=== PATIENT | male | born 1995 | race Caucasian/White ===

== ENCOUNTER 2019-01-01 10:54 | Outpatient (CLI) | payer BC | END 2019-01-01 10:55 | disposition home or self-care (01) | LOC: CTENTCT 10:54 | PROVIDERS: ATTEND Otolaryngology Plastic Surgery within the Head & Neck | DX: J01.81 Other acute recurrent sinusitis (principal) | CPT/HCPCS: 70486 ==

== ENCOUNTER 2020-02-21 05:42 | Outpatient (CLI) | payer BC, OTHER ==
[2020-02-22 14:41] LABS: SARS-CoV-2 MS2 Positive; SARS-CoV-2 N Gene Negative; SARS-CoV-2 S Gene Negative; SARS-CoV-2 by NAA Not Detected (NotDetected); SARS-CoV-2 orf1ab Negative
== END 2020-02-21 05:43 | disposition home or self-care (01) ==
LOC: LABBT 05:42
PROVIDERS: ATTEND Otolaryngology Plastic Surgery within the Head & Neck
DX: Z01.812 Encounter for preprocedural laboratory examination (principal); Z11.59 Encounter for screening for other viral diseases; J34.2 Deviated nasal septum; J34.3 Hypertrophy of nasal turbinates; J32.0 Chronic maxillary sinusitis; J32.1 Chronic frontal sinusitis; J32.2 Chronic ethmoidal sinusitis; J32.3 Chronic sphenoidal sinusitis
CPT/HCPCS: 87635; U0003

== ENCOUNTER 2020-02-26 05:59 | Day surgery (SDC) | payer BC ==
[2020-02-25 14:44] VITALS: BMI 22.9
[2020-02-26] MEDS ORDERED: AFRIN NASAL MIST 15 ML BOT ONE ×2 (06:15→06:34)
[2020-02-26] MEDS ORDERED: Lidocaine 1% w/Epinephrine 1:100K 20 ML VIAL ONE (06:34)
[2020-02-26] MEDS ORDERED: Bacitracin Zinc Ointment 30 gm TUBE ONE (06:34)
[2020-02-26] MEDS ORDERED: Fentanyl 100 MCG/2 ML VIAL ONE ×2 (06:46→09:02)
[2020-02-26] MEDS ORDERED: Meperidine HCl/PF 25 MG/ML VIAL ONE (09:24)
[2020-02-26] MEDS ORDERED: HYDROcodone/Acetaminophen 5/325 mg Tablet ONE (10:25)
[2020-02-26] MEDS ORDERED: Lidocaine 1% PF 5 ML VIAL ONE (10:28)
[2020-02-26] MEDS ORDERED: Dexamethasone 20 MG/5 ML VIAL ONE (10:28)
[2020-02-26] MEDS ORDERED: PROPOFOL 200 MG/20 ML VIAL ONE (10:28)
[2020-02-26] MEDS ORDERED: Ondansetron PF 4 MG/2 ML Vial ONE (10:28)
--- NOTE | 2020-02-27 12:34 | OP ---
DATE OF PROCEDURE: 02/26/2020 PREOPERATIVE DIAGNOSES: 1. Chronic rhinosinusitis. 2. Nasal obstruction. 3. Nasal septal ablation. 4. Bilateral inferior turbinate hypertrophy. 5. Nasal obstruction. POSTOPERATIVE DIAGNOSES: 1. Chronic rhinosinusitis. 2. Nasal obstruction. 3. Nasal septal ablation. 4. Bilateral inferior turbinate hypertrophy. 5. Nasal obstruction. PROCEDURES PERFORMED: 1. Bilateral endoscopic sinus surgery, total ethmoidectomies with sphenoidotomies including removal of tissue. 2. Bilateral endoscopic sinus surgery, maxillary antrostomy with removal of tissue. 3. Bilateral endoscopic sinus surgery, frontal sinus exploration. 4. Nasal septoplasty. 5. Bilateral inferior turbinate submucosal resection. ESTIMATED BLOOD LOSS: 20 mL. COMPLICATIONS: None. ANESTHESIA: GETA. PROCEDURE IN DETAIL: Patient was taken to the operating room and placed supine on the table. General endotracheal anesthesia was obtained by the anesthesia staff. Then 1% lidocaine with 1:100,000 epinephrine was injected into the nasal septum as well as the inferior turbinates. The patient was prepped and draped in standard surgical fashion. The Afrin pledgets were then removed. A Tino incision was made on the left nasal septum. Submucoperichondrial dissection was performed bilaterally of the deviated portions of the septum, which included the maxillary crest and the crest deviation, as well as the mid portion of the septum. Cartilage and bony deviation was removed, leaving a generous caudal and dorsal strut. Any straight pieces of cartilage were then placed within the cartilage press, pressed, straightened, and then placed between the mucoperichondrial flaps, which were then closed using a 4-0 gut stitch. The inferior turbinates were then punctured with the submucosal Coblation machine, and 3 separate coblations were delivered to the anterior inferior portion of the inferior turbinates. Following this, the nasal cavity was irrigated. All debris was removed. An orogastric tube was placed. Gastric contents and Car splints were then placed in the nasal cavity and sutured with a 3-0 silk stitch. Please note that the submucosal microdebrider was used to submucosally resect the anterior and inferior portions of the inferior turbinates. Following this, 1% lidocaine with 1:100,000 epinephrine were injected into the middle turbinates and lateral nasal wall bilaterally. Following this, the 0-degree endoscope was used to visualize the middle turbinate and the middle turbinate was medially fractured using a [place] elevator. Following this, the uncinate process was identified and was examined. The uncinate process was noted to be inflamed and laterally displaced bilaterally. Following this, a ball-ended probe was used to anteriorly fracture the uncinate process bilaterally. Following this, the 0-degree microdebrider and the up-biting [place]akes[place] forceps were used to remove the uncinate process bilaterally. Following this, the natural maxillary sinus ostia was identified with the 0-degree endoscope and the ball-ended probe. The natural maxillary ostia was then widened using a 40-degree microdebrider and the straight [place] forceps bilaterally. Following this, the ethmoidal bulla was identified bilaterally. A 0-degree microdebrider was used to puncture the ethmoidal bulla on its medial and inferior aspect bilaterally. Following this, the 0-degree microdebrider and the up-biting [place]akesley forceps were used to remove the ethmoidal bulla. Following this, the grand lamella was identified posterior to this area and was punctured using the 0-degree microdebrider bilaterally. Following this, the ethmoidal cells were opened from the posterior to the anterior using the 0-degree microdebrider, the 40-degree microdebrider and the up-biting [place]akes[place] forceps bilaterally. Following this, the 45-degree endoscope and the 40-degree microdebrider blade were used to further remove the anterior ethmoidal cells to the level of the frontal sinus recess bilaterally. Following this, the 0-degree endoscope was advanced through the previous ethmoidectomies and the anterior wall of the sphenoid sinus was identified. The sphenoid sinus was then punctured using a Workman tip suction bilaterally. Following this, the 0-degree microdebrider was inserted into the new sphenoidotomies and the sphenoid sinus was widened in a medial and inferior direction using the microdebrider. Polypoid tissue and necrotic bone were removed from this area to widen the sphenoidotomies. Following this, the curved suction and curved microdebrider were used to remove polypoid tissue from the maxillary sinus bilaterally. Following this, a 45-degree endoscope was used to visualize the frontal recess and anterior ethmoidal area. The 40-degree microdebrider blade was used to further open the anterior ethmoidal cells and expose the frontal sinus ostia bilaterally. The frontal sinus ostia were then punctured and widened using the 40-degree microdebrider and up-biting [place]akes[place] forceps bilaterally. Following this, the nasal cavity was irrigated. NasoPore packing was placed within the middle meatus. Car splints were placed and secured. The patient tolerated the procedure well. Job ID: [id number]
== END 2020-02-26 11:35 | disposition home or self-care (01) ==
LOC: SDC 05:59
PROVIDERS: ATTEND Otolaryngology Plastic Surgery within the Head & Neck
PROC: 09BQ8ZZ Excision of Right Maxillary Sinus, Via Natural or Artificial Opening Endoscopic (ICD-10-PCS; principal; 2020-02-26)
PROC: 099S8ZZ Drainage of Right Frontal Sinus, Via Natural or Artificial Opening Endoscopic (ICD-10-PCS; principal; 2020-02-26)
PROC: 09BW8ZZ Excision of Right Sphenoid Sinus, Via Natural or Artificial Opening Endoscopic (ICD-10-PCS; principal; 2020-02-26)
PROC: 09BR8ZZ Excision of Left Maxillary Sinus, Via Natural or Artificial Opening Endoscopic (ICD-10-PCS; principal; 2020-02-26)
PROC: 099T8ZZ Drainage of Left Frontal Sinus, Via Natural or Artificial Opening Endoscopic (ICD-10-PCS; principal; 2020-02-26)
PROC: 09TV8ZZ Resection of Left Ethmoid Sinus, Via Natural or Artificial Opening Endoscopic (ICD-10-PCS; principal; 2020-02-26)
PROC: 09TU8ZZ Resection of Right Ethmoid Sinus, Via Natural or Artificial Opening Endoscopic (ICD-10-PCS; principal; 2020-02-26)
PROC: 09BM0ZZ Excision of Nasal Septum, Open Approach (ICD-10-PCS; principal; 2020-02-26)
PROC: 09BX8ZZ Excision of Left Sphenoid Sinus, Via Natural or Artificial Opening Endoscopic (ICD-10-PCS; principal; 2020-02-26)
PROC: 09TL8ZZ Resection of Nasal Turbinate, Via Natural or Artificial Opening Endoscopic (ICD-10-PCS; principal; 2020-02-26)
DX: J32.4 Chronic pansinusitis (principal); J34.89 Other specified disorders of nose and nasal sinuses; J34.2 Deviated nasal septum; J34.3 Hypertrophy of nasal turbinates; J30.9 Allergic rhinitis, unspecified; H69.83 Other specified disorders of Eustachian tube, bilateral; H93.8X3 Other specified disorders of ear, bilateral; Z79.899 Other long term (current) drug therapy
CPT/HCPCS: J1100; J2175; J2405; J2704; J3010

== ENCOUNTER 2023-03-12 20:04 | Emergency (ER) | payer BC, OTHER ==
[2023-03-12] MEDS ORDERED: Morphine 4 MG/ML VIAL ONE ×2 (20:09→20:18)
[2023-03-12] MEDS ORDERED: CEFAZOLIN 2 GM VIAL ONE (20:09)
[2023-03-12] MEDS ORDERED: Boostrix 0.5 ML (Tdap) VIAL (>/=7 yrs of age) ONE (20:09)
[2023-03-12] MEDS ORDERED: Ketorolac Tromethamine 30 MG/ML VIAL ONE (20:23)
[2023-03-12] MEDS ORDERED: fentaNYL 50 mcg/mL 1 mL Vial ONE (20:33)
[2023-03-12 20:48] LABS: #Basophils 0.1 thou/uL (0.0-0.2); #Eosinphils 0.2 thou/uL (0.0-0.7); #Neutrophils 4.4 thou/uL (1.40-6.50); %Basophils 0.5 % (0.0-1.0); %Eosinophils 2.5 % (0.0-10.0); %Lymphocytes 38.1 % (21.0-51.0); %Monocytes 10.7 % (0.0-10.0); %Neutrophils 47.9 % (42.0-75.0); Hematocrit 45.2 % (42.0-52.0); Hemoglobin 15.1 g/dL (14.0-18.0); Mean Corpuscular HGB CONC 33.4 g/dL (32.0-36.0); Mean Corpuscular Hemoglobin 29.7 pg (27.0-31.0); Mean Platelet Volume 10.3 fL (7.4-10.4); Platelet Count 334 10x3/uL (130-400); RBC Distribution Width 12.2 % (11.5-14.5); Red Blood Cell (RBC) Count 5.08 mill/uL (4.70-6.10); White Blood Cell (WBC) Count 9.2 10x3/uL (4.8-10.8)
[2023-03-12 21:10] LABS: ALT (SGPT) 16 U/L (8-55); AST (SGOT) 19 U/L (5-34); Alkaline Phosphatase 79 U/L (40-110); Anion Gap 22 mmol/L (10-20); BUN (Urea Nitrogen) 14 mg/dL (8.9-20.6); Bilirubin, Total 0.4 mg/dL (0.2-1.2); Calc. Creatinine Clearance 0 mL/min (70-130); Calcium 10.1 mg/dL (7.8-10.44); Carbon Dioxide 23 mmol/L (22-29); Chloride 100 mmol/L (98-107); Estimated GFR 92; Glucose 121 mg/dL (70-105); Potassium 3.5 mmol/L (3.5-5.1); Sodium 141 mmol/L (136-145)
== END 2023-03-12 22:06 | disposition short-term general hospital (02) ==
LOC: ERS 20:04
DX: T23.302A Burn of third degree of left hand, unspecified site, initial encounter (principal); T23.301A Burn of third degree of right hand, unspecified site, initial encounter; T24.312A Burn of third degree of left thigh, initial encounter; T24.211A Burn of second degree of right thigh, initial encounter; X15.8XXA Contact with other hot household appliances, initial encounter
CPT/HCPCS: 80053; 83605; 85025; 90471; 90715; 96361; 96365; 96374; 96375; J1885; J2270; J3010